=== PATIENT | male | born 1950 | race Caucasian/White ===

== ENCOUNTER 2019-06-06 10:43 | Day surgery (SDC) | payer OTHER ==
[~2019-06-06] VITALS: Ht 182.9 cm; Wt 94.3 kg
[~2019-06-06 10:43] MED LIST: ASPIR 8181 M1 PO; ATENOLOL 50MG T50 M1 PO; NEURIVA PO; NORCO 5-325 TA1 EAC2 PO; SIMVASTATIN80 MG PO; TELMISARTAN80 MG PO; VITAMIN B-121000 MC2 SUBLING
[2019-06-06 11:55] VITALS: BP 164/80
[2019-06-06 13:59] VITALS: BP 164/80
--- NOTE | 2019-06-06 16:07 | O ---
[facility] [place] [address] OPERATIVE REPORT Name: OMAR COSTA Room #: DEP [facility]#: [id number] Admission: 06/06/19 Attend Phys: Gordo Marin MD Discharge: 06/06/19 Date of : 50 Report #: [id number] THIS REPORT FOR: //name// CC: Maria G Marin DATE OF SERVICE: 06/06/[address] Gordo Marin and Dr. Maria G Marin. PREOPERATIVE DIAGNOSIS: Right inguinal hernia. POSTOPERATIVE DIAGNOSIS: Right inguinal hernia with a right cord lipoma. PROCEDURE: Right inguinal hernia repair with Prolene hernia system mesh and excision of right cord lipoma. SURGEON: Gordo aMrin M.D. ANESTHESIA: Local IV sedation. DESCRIPTION OF PROCEDURE: The patient was brought to the operating room and placed on operative table in the supine position. Sequential compression devices were in place for DVT prophylaxis. There was no indication for preoperative antibiotics. The patient underwent IV sedation. Right inguinal area was prepped and draped in a sterile fashion. Skin and subcutaneous tissue were then infiltrated with 0.5% Marcaine and 1% Xylocaine in a 1:1 mixture. Right inguinal skin incision was then performed using #10 scalpel blade. Hemostasis obtained using electrocautery as well as clamps and 2-0 chromic ties. Dissection was carried down through subcutaneous tissue, the external oblique fascia, which was then incised with a knife, opened with Metzenbaum scissors. The cord was then dissected free, elevated up and held in place with a [place] drain. Cremasteric muscle fibers were then split in the direction of their fibers using clamp and electrocautery. A large cord lipoma was identified, dissected free, clamped, excised and tied with a 2-0 chromic tie. The cord was inspected and there was a large indirect inguinal hernia sac, which was dissected free from the cord all the way down to the internal ring. High ligation of the sac was then performed using a 2-0 Prolene suture and the sac was sent as specimen to pathology. An extended Prolene hernia system mesh was then inserted through the internal ring and the underlay patch was then deployed in the preperitoneal space. The floor was inspected and found to be weakened with a couple of small defects. The floor was then reinforced using a running 2-0 Prolene 2-layer Bassini repair. The overlay patch was then deployed into the inguinal canal and secured to the pubic tubercle with a same running 2-0 Prolene suture. The mesh was then secured superiorly and at the connector using [facility] [address] [place] [address] OPERATIVE REPORT Name: OMAR COSTA Room #: DEP [facility]..#: [id number] Admission: 06/06/19 Attend Phys: Gordo Marin MD Discharge: 06/06/19 Date of : 50 Report #: [id number] simple interrupted 2-0 Vicryl sutures. The mesh was split and wrapped around the cord, secured to the inguinal ligament with simple interrupted 2-0 Vicryl suture. The cord was then returned to the canal intact. The external oblique fascia was then closed using running 2-0 Vicryl suture. Shanda's fascia was then reapproximated using 3 simple interrupted 2-0 chromic sutures and the skin then closed with a running 4-0 subcuticular Vicryl stitch. Wound was then dressed with Mastisol, 1/2-inch Steri-Strips cut in half, Telfa, 4 x 4 gauze, sponge and tape. The patient was then awakened from the IV sedation, taken to recovery room awake, alert, in good condition. Estimated blood loss was approximately 5-10 mL and the patient tolerated procedure well. All sponge, lap and instrument counts were correct x 2. <ELECTRONICALLY SIGNED> By: Gordo Marin MD 06/06/19 1607 1350 1405 Gordo Marin MD /nt
--- NOTE | 2019-06-07 16:06 | PATH ---
[facility] [address] [address] [place] [address] PATHOLOGY RPT PROCEDURE Name: DAVID MEDINA Raj Room #: DEP [facility]..#: [id number] Admission: 06/06/19 Date of : 50 Discharge: 06/06/19 Report #: [id number] Path Case #: [id number] [facility] Accession Number: [id number] . 01 Material submitted: . PART A: inguinal area - RIGHT INGUINAL CORD LIPOMA. Modifiers: right PART B: hernia - RIGHT INGUINAL HERNIA SAC. Modifiers: right, inguinal . 01 Clinical history: . Bilateral inguinal hernia without, obstruction or gangrene . 02 Diagnosis: A. Mature adipose tissue, right inguinal cord lipoma, excision: - Compatible with a lipoma. . B. Fibrovascular connective tissue, right inguinal hernia sac, repair: - Congested fibrovascular connective tissue lined by mesothelium, consistent with a hernia sac. (IUV:amalia; 06/07/2019) . . QMS 06/07/2019 1351 Local . 02 Electronically signed: . Diana Robles MD, Pathologist NPI- [id number] . 01 Gross description: . A. The specimen is received in formalin, labeled "David Medina, right inguinal cord lipoma", is an irregular fragment of yellow lobulated adipose tissue covered by a thin pink-white membrane measuring 7.5 x 3.8 x 1.5 cm. The specimen is inked black, serially sectioned to show a vyas-yellow homogeneous cut surface with no discrete hemorrhage or necrosis. Representatively submitted in A1. . B. The specimen is received in formalin, labeled "David Medina, right inguinal hernia sac", consists of a vyas-pink fibromembranous sac measuring 9.7 x 3.0 with less than 0.1 cm thick wall. No discrete nodules or necrosis identified. Representatively submitted in B1. ([facility]; 06/06/2019) [facility] 06/06/2019 [facility] Local . 02 Pathologist provided ICD-10: D17.9, K44.9 . 02 CPT . 143695, [id number] [place] [address] PATHOLOGY RPT PROCEDURE Name: DAVID MEDINA Raj Room #: DEP [facility] M.Marc#: [id number] Admission: 06/06/19 Date of : 50 Discharge: 06/06/19 Report #: [id number] Path Case #: [id number] Specimen Comment: A courtesy copy of this report has been sent to [phone] Specimen Comment: Report sent to Performed at: [address], [place], [place] [id number] MD Jovanny Garcia MD Phone: [phone] Performed at: [address] [id number] MD Diana Robles MD Phone: [phone]
--- NOTE | 2019-06-07 17:02 | EKG ---
[place] [address] [employer] [place] [address] ELECTROCARDIOGRAM REPORT Name: OMAR COSTA Room #: [facility]#: [id number] Admission: 06/06/19 Attend Phys: Gordo Marin MD Discharge: 06/06/19 Date of : 50 Report #: [id number] THIS REPORT FOR: //name// [facility] Test Date: 2019-06-06 Test Time: 11:24:46 Pat Name: OMAR COSTA Department: Room: 150 12 Gender: M Back Sewer: JAVIER : 1950 Requested By: Gordo Marin Order Number: [id number] MD: Nishant Saucedo Measurements Intervals [place] Rate: 44 P: 1 WY: 176 QRS: -11 QRSD: 110 T: -2 QT: 477 QTc: 408 Interpretive Statements Sinus bradycardia Poor R wave progression Nonspecific T wave abnormality No previous ECG available for comparison Electronically Signed On 06-07-2019 17:02:08 ELECTRICAL ENGINEERING DRAFTING OFFICER by Nishant Saucedo [email or web address] <ELECTRONICALLY SIGNED> By: Nishant Saucedo MD, [facility] 06/07/19 1702 D: 11/1123 112 Nishant Saucedo MD, FACC /EPI
== END 2019-06-06 15:30 | disposition home or self-care (01) ==
LOC: OR 10:43 → TBA 10:47 → OR 12:56
DX: K40.90 Unilateral inguinal hernia, without obstruction or gangrene, not specified as recurrent (principal); D17.6 Benign lipomatous neoplasm of spermatic cord; I10 Essential (primary) hypertension; E78.5 Hyperlipidemia, unspecified; Z87.891 Personal history of nicotine dependence; Z98.890 Other specified postprocedural states; Z79.899 Other long term (current) drug therapy; Z79.82 Long term (current) use of aspirin
CPT/HCPCS: 50010; 50101; 50386; 50417; 54111; 56524; 56525; 56526; 56528; 62110; 62900; 70005

== ENCOUNTER 2019-08-15 07:50 | Day surgery (SDC) | payer OTHER ==
[~2019-08-15] VITALS: Ht 182.9 cm; Wt 93.9 kg
--- NOTE | ~2019-08-15 | O ---
[facility] [place] [address] OPERATIVE REPORT Name: OMAR COSTA Room #: 150-7 [facility]#: [id number] Admission: 08/15/19 Attend Phys: Gordo Marin MD Discharge: Date of : 50 Report #: [id number] THIS REPORT FOR: //name// CC: Maria G Marin DATE OF SERVICE: 08/15/[address] Gordo Marin and Dr. Maria G Marin. PREOPERATIVE DIAGNOSIS: Left inguinal hernia. POSTOPERATIVE DIAGNOSES: Left inguinal hernia with a left cord lipoma. PROCEDURE: Left inguinal hernia repair with Prolene hernia system mesh and excision of left cord lipoma. SURGEON: Gordo Marin M.D. ANESTHESIA: Local IV sedation. DESCRIPTION OF PROCEDURE: The patient was brought to the operating room and placed on operative table in the supine position. Sequential compression devices were in place for DVT prophylaxis. There was no indication for preoperative antibiotics. The patient underwent IV sedation. Left inguinal area was prepped and draped in a sterile fashion. Skin and subcutaneous tissue were then infiltrated with 0.5% Marcaine and 1% Xylocaine in a 1:1 mixture. Left inguinal skin incision was then performed using #10 scalpel blade. Hemostasis obtained using electrocautery as well as clamps and 2-0 chromic ties. Dissection was carried down through subcutaneous tissue, the external oblique fascia, which was then incised with a knife and opened the Metzenbaum scissors. The ilioinguinal nerve was identified, dissected free, injected with the local mixture and preserved. Cord was then elevated and held in place with [place] drain. Cremasteric muscle fibers were then split in the direction of fibers using clamp and electrocautery. A cord lipoma was excised and sent to pathology and tied with 2-0 chromic tie. The floor was inspected and there was a moderate size direct inguinal hernia defect. The direct inguinal hernia sac was dissected free, opened just above the level of floor and reduced back into the preperitoneal space. Preperitoneal space was then developed with blunt dissection. An extended Prolene hernia system mesh was then inserted through the floor and the underlay patch was then deployed in the preperitoneal space. Floor was then closed over the underlay patch and around the connector using running 2-0 Prolene two layer Shouldice repair. The overlay patch was then deployed in the inguinal canal and secured the pubic tubercle with the same running 2-0 Prolene suture. It was then secured superiorly and at the connector [address] [address] OPERATIVE REPORT Name: OMAR COSTA Room #: 150-7 [facility].Ling#: [id number] Admission: 08/15/19 Attend Phys: Gordo Marin MD Discharge: Date of : 50 Report #: [id number] using simple interrupted 2-0 Vicryl sutures. The mesh was split and wrapped around the cord, secured to the inguinal ligament with simple interrupted 2-0 Vicryl suture. The cord and ilioinguinal nerve then returned to the canal intact. The external oblique fascia was then closed using running 2-0 Vicryl suture. Shanda's fascia was then reapproximated using 3 simple interrupted 2-0 chromic sutures and the skin then closed with a running 4-0 subcuticular Vicryl stitch. The wound was then dressed with Mastisol, 1/2-inch Steri-Strips cut in half, Telfa, 4 x 4 gauze, sponge and tape. The patient was then awakened from the IV sedation, taken to recovery room in good condition. Estimated blood loss was approximately 5 mL and the patient tolerated procedure well. All sponge, lap and instrument counts correct x 2. By: 1105 1126 Gordo Marin MD /nt
[~2019-08-15 07:50] MED LIST changes: +PEPCID20 MG PO
[2019-08-15 08:49] VITALS: BP 157/99
[2019-08-15] MEDS ORDERED: NORCO 5-325 TA1 EAC1 PO (09:47)
--- NOTE | 2019-08-15 11:08 | H ---
[facility] [place] [address] HISTORY AND PHYSICAL Name: OMAR COSTA Room #: 150-7 [facility]#: [id number] Admission: 08/15/19 Attend Phys: Gordo Marin MD Discharge: Date of : 50 Report #: [id number] THIS REPORT FOR: //name// CC: Maria G Marin DATE OF SERVICE: 08/14/2019 PATIENT OF: Dr. Gordo Marin and Dr. Maria G Marin. CHIEF COMPLAINT: Groin bulge. HISTORY OF PRESENT ILLNESS: The patient is a 69-year-old white male who last about a year ago, went to lift up one of his grandchildren and he heard a pop and felt a bulge in the right groin. No history of any previous hernias. He had minimal to no pain. He denies any recent changes in bowel or bladder habits and his colonoscopy was a couple of years ago and was normal. Saw his primary care physician, Dr. Maria G Marin, who recommended surgical consultation. On surgical consultation, he was found to have bilateral inguinal hernias and underwent a right inguinal hernia repair in May. He now returns for repair of the left side. PAST MEDICAL HISTORY: Hypertension, hypercholesterolemia, nasal sinus surgery, right inguinal hernia repair 06/06/2019 at [facility]. MEDICATIONS: Simvastatin 80 mg p.o. every day, atenolol 50 mg p.o. every day, telmisartan 80 mg p.o. every day. ALLERGIES: No known drug allergies. FAMILY HISTORY: Noncontributory. SOCIAL HISTORY: , does not smoke, drinks alcohol occasionally. REVIEW OF SYSTEMS: Pertinent positives as above. Full review of systems otherwise negative. PHYSICAL EXAMINATION: GENERAL: A well-developed, well-nourished white male in no acute distress. VITAL SIGNS: Stable. He is afebrile. Height 71 inches, weight is 207 pounds, BMI of 28.87. HEENT: Sclerae are nonicteric. Mucous membranes moist and pink. NECK: There is no adenopathy. LUNGS: Clear to auscultation bilaterally. Normal excursion. CARDIOVASCULAR: Regular rate and rhythm. No murmurs, S3, S4. No PMI. [address] [address] HISTORY AND PHYSICAL Name: OMAR COSTA Room #: [address] [place] [address]#: [id number] Admission: 08/15/19 Attend Phys: Gordo Marin MD Discharge: Date of : 50 Report #: [id number] ABDOMEN: Soft, flat and nontender. No palpable masses, no organomegaly, no hernias. GENITOURINARY: Normal scrotum, phallus and testes. There is a well-healed right inguinal incision scar. There is a palpable small to moderate size left inguinal hernia. EXTREMITIES: No clubbing, cyanosis or edema. NEUROLOGIC: Intact with a clear mental status. IMPRESSION: A 69-year-old white male with bilateral inguinal hernias. He has had the right side repaired, now returns for repair of the left side. I fully discussed with the patient's , the diagnosis, prognosis, and treatment options and he states he understands and agrees to proposed surgery. PLAN: We will perform a left inguinal hernia repair under local IV sedation as an outpatient at [facility]. The procedure and its risks, benefits and possible complications including use of mesh were fully discussed with the patient and his . They state they understand and agrees to proposed surgery. <ELECTRONICALLY SIGNED> By: Gordo Marin MD 08/15/19 1108 1239 1309 Gordo Mrain MD /nt
[2019-08-15 11:20] VITALS: BP 157/99
--- NOTE | 2019-08-17 11:08 | PATH ---
[facility] [address] [place] [address] PATHOLOGY RPT PROCEDURE Name: DAVID MEDINA Raj Room #: DEP [facility].#: [id number] Admission: 08/15/19 Date of : 50 Discharge: 08/15/19 Report #: [id number] Path Case #: [id number] [facility] Accession Number: [id number] . 01 Material submitted: . hernia - LEFT CORD LIPOMA. Modifiers: left . 01 Clinical history: . unilateral inguinal hernia without obstruction or gangrene . 02 Diagnosis: Mature adipose tissue, left cord lipoma, excision: - Compatible with a lipoma. (IUV/db; 08/16/2019) LBQ 08/16/2019 1549 Local . 02 Electronically signed: . Diana Robles MD, Pathologist NPI- [id number] . 01 Gross description: . The specimen is received in formalin, labeled "David Medina", "left cord lipoma". Received is a poorly circumscribed, unencapsulated segment of bright yellow, lobulated adipose tissue measuring 4.5 x 2.1 x 0.3 cm. Sectioning reveals a bright yellow, lobulated adipose cut surface with no solid masses or nodules identified. Motorized [employer] sections are submitted in cassette A1.([facility]; 08/15/2019) XENIA/ALLI 08/15/2019 1635 [facility] . 02 Pathologist provided ICD-10: D17.9 . 02 CPT . 861927 Specimen Comment: A courtesy copy of this report has been sent to [phone] Specimen Comment: Report sent to Performed at: [address], [place] [id number] MD Jovanny Garcia MD Phone: [phone] Performed at: [address] [id number] MD Diana Robles MD Phone: [phone]
== END 2019-08-15 12:06 | disposition home or self-care (01) ==
LOC: TBA 07:50 → OR 07:50 → TBA 07:54 → OR 09:14
DX: K40.90 Unilateral inguinal hernia, without obstruction or gangrene, not specified as recurrent (principal); D17.6 Benign lipomatous neoplasm of spermatic cord; I10 Essential (primary) hypertension; E78.00 Pure hypercholesterolemia, unspecified; Z98.890 Other specified postprocedural states; Z79.899 Other long term (current) drug therapy; Z79.82 Long term (current) use of aspirin
CPT/HCPCS: 50010; 50101; 50386; 50417; 54111; 56524; 56525; 56526; 56528; 62110; 62850; 70005

== ENCOUNTER → 2021-08-13 | Outpatient (CLI) | payer OTHER ==
[~2021-08-13] MED LIST changes: +NORCO 5-325 TA1 EAC1 PO
== END ==
LOC: SJCVCIMAG 09:27 → SJCVC 09:27
PROVIDERS: ATTEND Internal Medicine
DX: I45.10 Unspecified right bundle-branch block (principal); R94.31 Abnormal electrocardiogram [ECG] [EKG]; Z13.220 Encounter for screening for lipoid disorders; Z79.82 Long term (current) use of aspirin; Z79.899 Other long term (current) drug therapy